=== PATIENT | female | born 1965 | race Caucasian/White ===

== ENCOUNTER 2018-05-18 21:31 | Inpatient (IN) | payer MEDICARE, MEDICAID ==
--- NOTE | 2018-05-18 22:31 | ED Physician Chart ---
ED Chief Complaint/HPI - Patient Information Date Seen:: 05/18/18 Time Seen:: 22:28 Chief Complaint:: AGITATION History of Present Illness:: 52 YR OLD FEMALE FOR INCREASED AGITATION PT HERE SCREAMING NOT ABLE TO FOLLOW COMMANDS Allergies:: Allergies Allergy/AdvReac Type Severity Reaction Status Date / Time No Known Allergies Allergy Verified 05/18/18 22:09 Vitals:: Vital Signs - 8 hr 05/18/18 21:35 Temp 98.0 F HR 80 RR 18 BP 145/79 O2 Sat % 96 ED Review of Systems - Review of Systems General/Constitutional: No fever Skin: Rash Eyes: No loss of vision Neck: No neck pain Cardio Vascular: No chest pain Pulmonary: No SOB GI: No vomiting Psychiatric: Prior psych history Hematopoietic: Bruising Neurological: No syncope ED Past Medical History - Past Medical History Past Medical History: DM, Asthma/COPD, Dementia, Other (ANEMIA PSYCHOSIS) Family Medical History - Family Member Mother History Unknown: Yes ED Physical Exam - Physical Examination General/Constitutional: Awake Other Gen/Cons comments:: VERY AGITATION ALWAYS YELLING SCREAMING TAKING OFF HER SHEETS STRIPPING DOWN Neck: Nontender Respiratory: Nl effort/Exclusion Cardio Vascular: No murmur, gallop, rubs GI: No organomegaly Extremities: No tenderness or effusion (HAS REDDNESS AREA LEGS) ED Assessment - Assessment General Assessment: PSYCHOSIS ED Septic Shock - . Is Septic Shock (SBP<90, OR Lactate>4 mmol\L) present?: No - <6hrs of presentation: Vital Signs: Vital Signs - 8 hr 05/18/18 21:35 Temp 98.0 F HR 80 RR 18 BP 145/79 O2 Sat % 96 ED Reassessment (Disposition) - Reassessment Reassessment Condition:: Improved - Diagnosis Diagnosis:: PSYCHOSIS AGITATION - Patient Disposition Discharge/Transfer:: Acute Care w/in this hosp
[2018-05-18] MEDS ORDERED: Haloperidol Lactate 5 mg/mL 1mL Vial IM STA (22:59)
[2018-05-18] MEDS ORDERED: Haloperidol Lactate 5 mg/mL 1mL Vial ONE (23:00)
[2018-05-18 23:28] LABS: % EOSINOPHILS 0.3 % (0.0-5.0); % LYMPHOCYTES 23.1 % (20.0-50.0); % MONOCYTES 8.2 % (2.0-10.0); % NEUTROPHILS 67.4 % (40.0-80.0); BASOPHILE ABSOLUTE 0.1 Th/cumm (0-0.2); HEMATOCRIT 36.8 % (41.0-60); HEMOGLOBIN 12.3 gm/dL (12-16); LYMPHOCYTE ABSOLUTE 2.3 Th/cmm (1.5-3.0); MEAN CELL VOLUME 94.9 fl (81-100); MEAN CORPUSCULAR HEMOGLOBIN 31.7 pg (27.0-31.0); MEAN CORPUSCULAR HGB CONC 33.4 pg (28.0-36.0); MEAN PLATELET VOLUME 8.3 fl; MONOCYTE ABSOLUTE 0.8 Th/cmm (0.3-1.0); NEUTROPHILE ABSOLUTE 6.7 Th/cmm (1.8-8.0); PLATELET COUNT 302 Th/cmm (150-400); RED BLOOD COUNT 3.88 Mil/cmm (3.80-5.10); RED CELL DISTRIBUTION WIDTH 13.4 % (11.5-20.0); WHITE BLOOD COUNT 9.9 Th/cmm (4.8-10.8)
[2018-05-18 23:44] LABS: ANION GAP 11.7 (7.0-16.0); BUN - UREA NITROGEN 13 mg/dL (7-25); CALCIUM SERUM 8.9 mg/dL (8.6-10.3); CHLORIDE 107 mEq/L (98-107); CREATININE - SERUM 0.7 mg/dL (0.6-1.2); GFR AFRICAN-AMERICAN > 60.0 ml/min (>90); GFR NON AFRICAN-AMERICAN > 60.0 ml/min; GLUCOSE 97 mg/dL (70-105); POTASSIUM SERUM 3.7 mEq/L (3.5-5.1); SODIUM SERUM 140 mEq/L (136-145); VALPROIC ACID 40.2 ug/mL (50.0-100.0)
[2018-05-19 01:01] VITALS: BP 137/65
[2018-05-19] MEDS ORDERED: Albuterol Nebulizer 2.5mg/3mL HHN PRN (01:10)
[2018-05-19] MEDS: INSULIN ASPART SLIDING SCALE 100 UNITS/ML UNIT SUBQ SCH ×4 (06:45→22:18)
[2018-05-19] MEDS ORDERED: Haloperidol Lactate 5 mg/mL 1mL Vial ONE (07:18)
[2018-05-19] MEDS ORDERED: Haloperidol Lactate 5 mg/mL 1mL Vial IM ONE ×2 (07:18→07:21)
[2018-05-19] MEDS: Ferrous Sulfate 325 MG TAB PO SCH ×3 (08:05→22:18)
[2018-05-19] MEDS: Benztropine 1 MG TAB PO SCH ×2 (08:05→18:00)
[2018-05-19] MEDS: Multivitamin Tab PO SCH (08:06)
[2018-05-19] MEDS ORDERED: chlorproMAZINE 25 mg/mL 2mL Amp ONE (10:16)
[2018-05-19] MEDS ORDERED: chlorproMAZINE 25 mg/mL 2mL Amp IM ONE (10:17)
--- NOTE | 2018-05-19 11:18 | History & Physical ---
ADMIT DATE: 05/19/2018 CHIEF COMPLAINT: Increasing agitation. HISTORY OF PRESENT ILLNESS: A 52-year-old developmentally delayed female with history of: 1. Psychotic disorder. 2. Diabetes mellitus. 3. Questionable dementia. 4. Developmental delay. 5. Asthma; resides at [facility], sent to [facility] Emergency Room after the patient was noted to have increasing agitation and aggressive behavior. The patient was noted to have multiple abrasions on her upper and lower extremity. The patient was now being admitted at this time to psych facility for further treatment. Unable to get meaningful history from the patient due to extreme agitation at this time. History is limited after reviewing the chart, talking to the staff, as well as brief exam. PAST MEDICAL HISTORY: Remarkable for: 1. Diabetes. 2. Developmental delay. 3. Psychotic disorder. 4. Asthma. 5. DJD. MEDICATIONS: Reported Tylenol, vitamin C, Cogentin, Depakote, albuterol inhalation therapy, ferrous sulfate, Invega, Lantus, multivitamin, sliding scale insulin, clonazepam, Zyprexa, trazodone. ALLERGIES: The patient is allergic to medications. SOCIAL HISTORY: She is a resident of skilled nursing. No smoking or alcohol use. FAMILY MEDICAL HISTORY: Unavailable. REVIEW OF SYSTEMS: Unable to get meaningful history from the patient. PHYSICAL EXAMINATION: GENERAL: A 52-year-old female, extremely agitated. VITAL SIGNS: Temperature 98, pulse is 100, respiratory rate is 20, blood pressure 128/68. HEENT: Normocephalic, atraumatic. Tongue was pink and coated. Poor dentition noted. No facial asymmetry. NECK: Supple, no JVD, no bruit, no thyromegaly. HEART: Both heart sounds are regular. No murmur. CHEST AND LUNGS: Equal in expansion with no expiratory wheezing. ABDOMEN: Soft. No guarding, no rigidity. Bowel sounds present. No palpable mass. EXTREMITIES: No edema. Peripheral pulses are +2. No calf tenderness. NEUROLOGIC: Extremely agitated, moving upper and lower extremities. SKIN: Unremarkable. Multiple areas of abrasions as well as scratch ivon and ecchymosis also noted on extremities. AVAILABLE DIAGNOSTIC DATA: Performed in the Emergency Room, which revealed white count of 9, hemoglobin 12.3, platelet count of 302. Electrolytes are within normal limit, glucose of 121. Depakote level of 40.2. TSH of 1.56. CLINICAL IMPRESSIONS: 1. Acute exacerbation of psychotic disorder. 2. Developmental delay. 3. Diabetes mellitus. 4. Asthma. 5. High risk for fall. 6. High risk for dehydration. 7. Multiple areas of skin abrasions. PLAN: 1. Psychotic evaluation and management deferred to psychiatrist. 2. The patient will be resumed on her home medication as patient is receiving. Inhalation therapy will be provided. sliding scale insulin will be given. Fall precaution will be provided. Nutritional support will be given. General nursing care will be provided. We will reevaluate this patient further once the patient is more cooperative and provided more history. I sincerely thank you, Dr. Calderon for giving me the opportunity to participate in patient of yours. JOB# [id number]
--- NOTE | 2018-05-19 15:05 | Psychiatric Evaluation ---
DATE OF SERVICE: 05/19/2018 PSYCHIATRIC INITIAL EVALUATION AND MENTAL STATUS EXAM PATIENT'S AGE: 52-year-old. SEX: Female. PHYSICIAN: Martin Calderon MD, MPH CHIEF COMPLAINT: Agitation and aggressive behavior. HISTORY OF PRESENT ILLNESS: The patient is a 52-year-old female who was transferred from [facility] because of increased agitation and because of yelling and screaming constantly. The patient has been yelling and screaming constantly and has not been able to follow any directions. She also has been rambling and has been paranoid. She also has not been able to answer any of the questions because of constant yelling and screaming. The patient has been also taking medications, include Depakote and olanzapine and Zoloft with no help for controlling her temper and her agitation. PAST PSYCHIATRIC HISTORY: The patient has history of developmental delay. PAST MEDICAL HISTORY: The patient has a history of diabetes mellitus. SOCIAL HISTORY: The patient lives in [facility]. No known alcohol or drug use. ALLERGIES: No known allergies. MENTAL STATUS EXAMINATION: The patient appears older than her stated age. Yelling and screaming constantly. Irritable mood. Flat affect. Agitated and unable to answer any of my questions because of yelling and screaming. The patient is alert, but seems to be disoriented to time, place, person, and situation. Unable to assess her memory because of her constant agitation and irritability. ASSESSMENT: PRIMARY DIAGNOSIS: Unspecified psychosis. SECONDARY DIAGNOSIS: Developmental delay. MEDICAL DIAGNOSES: Diabetes mellitus. Bronchial asthma. Degenerative joint disease. TREATMENT PLAN AND RECOMMENDATIONS: We will monitor the patient's behavior closely. We will increase Zyprexa to 10 mg twice a day. We will follow up. ESTIMATED LENGTH OF STAY: 5-7 days. THE PATIENT'S STRENGTHS AND WEAKNESSES: The patient's strength is not clear at this time. Weaknesses is ineffective coping and her poor judgment. AFTER DISCHARGE PLAN: Outpatient treatment and followup. CRITERIA FOR DISCHARGE: The patient will not get agitated and will stabilize psychotropic medications and will establish outpatient treatment plans. JOB# [id number]
[2018-05-20] MEDS: INSULIN ASPART SLIDING SCALE 100 UNITS/ML UNIT SUBQ SCH ×4 (06:57→21:04)
[2018-05-20] MEDS: Benztropine 1 MG TAB PO SCH ×2 (10:00→18:00)
[2018-05-20] MEDS: Ferrous Sulfate 325 MG TAB PO SCH ×3 (10:00→21:06)
[2018-05-20] MEDS: Multivitamin Tab PO SCH (10:00)
[2018-05-20] MEDS ORDERED: chlorproMAZINE 25 mg/mL 2mL Amp ONE (11:10)
[2018-05-20] MEDS ORDERED: chlorproMAZINE 25 mg/mL 2mL Amp IM STA (11:15)
[2018-05-21] MEDS: INSULIN ASPART SLIDING SCALE 100 UNITS/ML UNIT SUBQ SCH ×4 (06:42→21:10)
--- NOTE | 2018-05-21 07:39 | Progress Notes ---
DATE: 05/21/2018 A 52-year-old female transferred from [facility] because of agitation, yelling, screaming constantly and constant redirection, not really answering to my questions, history of developmental disability, diabetes. Staff noting she remains symptomatic, ongoing yelling episodes, sometimes agitated, confused, rambling, eating with some prompting. ASSESSMENT: The patient remains symptomatic, impulsive, poor sleep at times, aggressive, still confused. The patient at times putting her finger into her nostril for unclear reasons, becomes angry with the nurse when they tell her to stop. We will continue to monitor her ongoing symptoms indicative that she is not safe for a lower level of care. Currently, she is in a Ramonita chair, calm, quiet. Staff noting trazodone did ____ help her sleep. JOB# [id number]
[2018-05-21] MEDS: Multivitamin Tab PO SCH (08:56)
[2018-05-21] MEDS: Ferrous Sulfate 325 MG TAB PO SCH ×3 (08:57→21:09)
[2018-05-21] MEDS: Benztropine 1 MG TAB PO SCH ×2 (08:57→16:58)
[2018-05-21] MEDS ORDERED: Haloperidol Lactate 5 mg/mL 1mL Vial IM ONE (11:55)
[2018-05-21] MEDS ORDERED: Haloperidol Lactate 5 mg/mL 1mL Vial ONE (12:01)
--- NOTE | 2018-05-21 22:20 | Progress Notes ---
DATE: 05/21/2018 SUBJECTIVE: The patient was seen and examined. The patient is developmentally delayed with a limited history. She is admitted at psych facility for psychiatric care. PHYSICAL EXAMINATION: VITAL SIGNS: See nurse's note. HEENT: Poor dentition. NECK: Supple. HEART: Regular. LUNGS: Clear. ABDOMEN: Soft. EXTREMITIES: No edema. NEUROLOGIC: Not following any commands. CLINICAL IMPRESSION: 1. Diabetes. 2. Developmental delay. 3. Psychotic disorder. 4. Asthma. 5. High risk for fall. PLAN: 1. Psychiatric evaluation and management, deferred to psychiatrist. 2. Diabetes management. 3. Nutritional support. 4. Fall precaution. 5. Watch for asthma exacerbation. 6. Care plan reviewed and discussed with staff. JOB# [id number]
--- NOTE | 2018-05-22 02:06 | Progress Notes ---
DATE: 05/20/2018 SUBJECTIVE: Chart reviewed and the patient interviewed. Also discussed the patient's condition with the staff and reviewed records and labs. The patient is still restless and she is still yelling and screaming. The patient also is still unable to follow any directions. The patient also is still having severe mood swings and she is still yelling and screaming regardless of situation and for no reason. Also, the patient is disheveled and she is still having severe mood swings. ASSESSMENT: The patient is still agitated and in irritable mood. TREATMENT PLAN: We will continue to monitor her behavior and her condition closely. Also, we will add Klonopin in a dose of 0.25 mg twice a day and will continue to follow up. JOB# [id number]
[2018-05-22] MEDS: INSULIN ASPART SLIDING SCALE 100 UNITS/ML UNIT SUBQ SCH ×4 (06:57→20:34)
--- NOTE | 2018-05-22 06:58 | Progress Notes ---
DATE: 05/22/2018 SUBJECTIVE: A 52-year-old female transferred from [facility] the patient was yelling, still yelling at this time, moaning, difficult to redirect, resistive to care, history of developmental disability. 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 ASSESSMENT: The patient remains aggressive, required emergency medications, Haldol, cocktail was administered last night. Given her ongoing symptoms, she is not safe for discharge. The patient is still agitated. JOB# [id number]
[2018-05-22] MEDS: Benztropine 1 MG TAB PO SCH ×2 (08:59→16:20)
[2018-05-22] MEDS: Multivitamin Tab PO SCH (08:59)
[2018-05-22] MEDS: Ferrous Sulfate 325 MG TAB PO SCH ×3 (09:00→21:15)
[2018-05-23] MEDS: INSULIN ASPART SLIDING SCALE 100 UNITS/ML UNIT SUBQ SCH ×4 (06:32→21:00)
[2018-05-23] MEDS: Ferrous Sulfate 325 MG TAB PO SCH ×4 (08:53→20:44)
[2018-05-23] MEDS: Multivitamin Tab PO SCH (08:53)
[2018-05-23] MEDS: Benztropine 1 MG TAB PO SCH ×2 (08:53→17:31)
[2018-05-23] MEDS ORDERED: chlorproMAZINE 25 mg/mL 2mL Amp ONE (10:55)
[2018-05-23] MEDS ORDERED: chlorproMAZINE 25 mg/mL 2mL Amp IM STA (11:02)
--- NOTE | 2018-05-23 11:17 | Progress Notes ---
DATE: 05/23/2018 SUBJECTIVE: The patient seen and examined. The patient has a constant period of agitation and aggressive behavior. The patient does not provide a meaningful history. PHYSICAL EXAMINATION: VITAL SIGNS: Temperature 96.9, pulse is 100, respiratory rate 16, blood pressure 107/65. HEENT: Poor dentition. NECK: Supple, no JVD. HEART: Regular. CHEST AND LUNGS: Equal in expansion, no expiratory wheezing. ABDOMEN: Soft, no guarding or rigidity. Bowel sounds are present. No palpable mass. EXTREMITIES: No edema. CLINICAL IMPRESSION: 1. Psychotic disorder exacerbation. 2. Developmental disability. 3. Diabetes mellitus. 4. Asthma. 5. Ruled out aspiration. PLAN: 1. Psychotic evaluation and management deferred to psychiatrist. 2. Fall precautions. 3. Nutritional support. 4. General nursing care. 5. Diabetes management. 6. P.r.n. inhalation therapy. 7. We will continue to follow this patient during the stay in the hospital. 8. Once the patient is stable, we will consider aspiration, dysphagia evaluation. JOB# [id number]
[2018-05-23] MEDS ORDERED: Haloperidol Lactate 5 mg/mL 1mL Vial IM ONE (15:06)
[2018-05-24] MEDS: INSULIN ASPART SLIDING SCALE 100 UNITS/ML UNIT SUBQ SCH ×4 (06:33→21:45)
[2018-05-24] MEDS: Multivitamin Tab PO SCH (08:42)
[2018-05-24] MEDS: Ferrous Sulfate 325 MG TAB PO SCH ×3 (08:42→22:00)
[2018-05-24] MEDS: Benztropine 1 MG TAB PO SCH ×2 (08:43→18:01)
--- NOTE | 2018-05-24 09:42 | Progress Notes ---
DATE: 05/24/2018 SUBJECTIVE: The patient seen and examined. The patient is sitting in the chair. The patient is a little bit more cooperative than last few days. The patient remained hemodynamically stable. OBJECTIVE: VITAL SIGNS: Unable to see the vital signs since it was not done today. HEENT: Poor dentition. NECK: Supple, no JVD. HEART: Regular. CHEST AND LUNGS: Equal in expansion, no expiratory wheezing. ABDOMEN: Soft. EXTREMITIES: No edema. CLINICAL IMPRESSION: 1. Diabetes mellitus. 2. Developmental delay. 3. Psychotic disorder exacerbation. 4. High risk for fall. 5. Asthma. 6. Dysphagia. PLAN: 1. Psychotic evaluation and management deferred to psychiatrist. 2. Monitor blood sugar and use sliding scale insulin. 3. Continue to watch for aspiration. 4. Dysphagia therapy. 5. General nursing care. 6. The patient will be followed by us during the stay in the hospital. JOB# [id number]
--- NOTE | 2018-05-24 23:57 | Progress Notes ---
DATE: 05/23/2018 Chart reviewed and the patient interviewed. Also discussed the patient's condition with the staff and reviewed records and labs. The patient continued to be constantly yelling and screaming nonstop. The patient also is still agitated and she is still unable to follow any directions. The patient also is still in irritable and angry mood. Also, she still has disorganized thoughts. Also, personal hygiene is still poor. ASSESSMENT: The patient is still agitated and psychotic. TREATMENT PLAN: Although the patient is taking Zyprexa, it is not helping much. We will decrease Zyprexa to 5 mg twice a day and we will start Seroquel in a dose of 25 mg twice a day and 50 mg at bedtime. Also, continue to work on her behavior modification and her irritability and we will continue to follow up closely. JOB# [id number]
--- NOTE | 2018-05-25 00:26 | Progress Notes ---
DATE: 05/24/2018 SUBJECTIVE: Chart reviewed and the patient interviewed. Also discussed the patient's condition with the staff and reviewed records and labs. The patient continued to be extremely irritable and extremely agitated with yelling and screaming episodes. She also still has been taking p.r.n. medications including Thorazine and Haldol, but is not helping enough. She also has been guarded and withdrawn. She also has been unable to follow any of the staff directions because of ____ agitation and irritability. ASSESSMENT: The patient is still agitated and psychotic and actively responding. TREATMENT PLAN: I started the patient on Seroquel yesterday. We will add Klonopin in a dose of 1 mg 3 times a day and we will continue to work on behavioral modification and her irritability. JOB# [id number]
[2018-05-25] MEDS: INSULIN ASPART SLIDING SCALE 100 UNITS/ML UNIT SUBQ SCH ×4 (06:46→21:26)
[2018-05-25] MEDS: Ferrous Sulfate 325 MG TAB PO SCH ×3 (08:09→20:48)
[2018-05-25] MEDS: Benztropine 1 MG TAB PO SCH ×2 (08:09→17:07)
[2018-05-25] MEDS: Multivitamin Tab PO SCH (08:10)
--- NOTE | 2018-05-25 13:01 | Progress Notes ---
DATE: 05/25/2018 Case was discussed with staff of the patient, reviewed records. Covering for Dr. Calderon. This is a 52-year-old female who was transferred from [facility] because of increasing agitation, yelling and screaming constantly. The patient is developmentally disorder, has been paranoid, unable to answer questions. The patient also is diabetic. The patient continues to be yelling and screaming. Continues to have poor insight. Continues to be unable to carry on a conversation or make safe plan for self-care. The staff report that they gave her all kind of medication to help stop her screaming and did not work. She is on Klonopin 1 mg 3 times a day and olanzapine 5 mg twice a day and Seroquel 50 mg 3 times a day and Zoloft 100 mg daily, trazodone 150 mg at bedtime with no side effects, no sedation, no nausea, no extrapyramidal symptoms. Her Depakote level is 40.2, which is below expected range or below therapeutic range. However, her dose was increased 2 days ago to 500 mg twice a day. So, I will be rechecking the level. We will continue the patient in group therapy, milieu therapy, adjust medication as needed. [facility]# [id number]
[2018-05-26] MEDS: INSULIN ASPART SLIDING SCALE 100 UNITS/ML UNIT SUBQ SCH ×4 (06:37→21:26)
[2018-05-26] MEDS ORDERED: chlorproMAZINE 25 mg/mL 2mL Amp ONE (07:09)
[2018-05-26] MEDS ORDERED: chlorproMAZINE 25 mg/mL 2mL Amp IM STA (07:34)
[2018-05-26] MEDS: Ferrous Sulfate 325 MG TAB PO SCH ×3 (08:06→21:19)
[2018-05-26] MEDS: Multivitamin Tab PO SCH (08:06)
[2018-05-26] MEDS: Benztropine 1 MG TAB PO SCH ×2 (08:06→17:15)
--- NOTE | 2018-05-26 15:19 | Progress Notes ---
DATE: 05/26/2018 SUBJECTIVE: Case was discussed with staff of the patient, reviewed records. The patient continues to have episodes of irritability, agitation, continues to be on as needed medications because of extreme agitation, acting out behavior. The patient continues to be psychotic, also she is developmentally disabled and so far no side effects with the medication, no sedation, no nausea and no extrapyramidal symptoms and noted to have the patient in group therapy, milieu therapy, adjust the medication as needed. JOB# [id number]
--- NOTE | 2018-05-26 16:45 | Progress Notes ---
DATE: 05/26/2018 SUBJECTIVE: The patient seen and examined. The patient sitting in a Ramonita chair. The patient is alert, but not oriented. The patient is restless and anxious. Discussed with staff about the treatment plan. PHYSICAL EXAMINATION: VITAL SIGNS: Temperature 97.9, pulse 84, respiratory rate 18, and blood pressure 131/68. HEENT: Poor dentition. NECK: Supple, no JVD. HEART: Regular. CHEST AND LUNGS: Equal in expansion, no expiratory wheezing. ABDOMEN: Soft. EXTREMITIES: No edema. Glucoscan is reviewed. CLINICAL IMPRESSION: 1. Diabetes mellitus. 2. Developmental delay. 3. Dysphagia. 4. Asthma by history. 5. Psychotic disorder. 6. High risk for fall. PLAN: 1. Sliding scale insulin and monitor the blood sugar. 2. P.r.n. inhalation therapy. 3. Psych medication and psych followup. 4. Fall precautions. 5. Dysphagia diet. 6. General nursing care. 7. We will continue to follow this patient during the stay in the hospital. 8. We will add low dose metformin therapy as well if blood sugars are elevated for next 24 hours. JOB# [id number]
[2018-05-27] MEDS: INSULIN ASPART SLIDING SCALE 100 UNITS/ML UNIT SUBQ SCH ×3 (06:31→17:36)
[2018-05-27] MEDS: Multivitamin Tab PO SCH (08:26)
[2018-05-27] MEDS: Benztropine 1 MG TAB PO SCH ×2 (08:26→16:56)
[2018-05-27] MEDS: Ferrous Sulfate 325 MG TAB PO SCH ×2 (08:27→14:37)
--- NOTE | 2018-05-27 23:49 | Progress Notes ---
DATE: 05/27/[address] Calderon. Case was discussed with staff of the patient, reviewed records. The patient continues to be agitated, irritable, continues to be yelling and screaming. Continues to have poor insight. Unable to make safe plan for self-care, unpredictable, impulsive, needing right direction. She is also developmentally disabled. Apparently yesterday, they gave her Thorazine, it seemed she had a wonderful response to it. Apparently, she was able to sleep yesterday, so I will be adding Thorazine to her medication 50 mg daily and increase the dose as instructed, but meanwhile I will be taking her off the Zyprexa and Seroquel. Apparently, that has not been working for her and will continue outpatient group therapy, milieu therapy, and adjust medication as needed. JOB# [id number]
[2018-05-28] MEDS: Ferrous Sulfate 325 MG TAB PO SCH ×4 (01:52→20:10)
[2018-05-28] MEDS: INSULIN ASPART SLIDING SCALE 100 UNITS/ML UNIT SUBQ SCH ×5 (02:04→22:54)
--- NOTE | 2018-05-28 08:44 | Progress Notes ---
DATE: 05/28/2018 DATE OF SERVICE: 05/28/2018 SUBJECTIVE: A 52-year-old female who is transferred from because of increased agitation, yelling, screaming constantly, not following directions, rambling, paranoid, not really answering any questions. The patient on medley of medications. The patient required emergency medications over the past 24 hours, yelling, screaming. On [id number], the patient is sleeping, but arousable, not wanting to engage during interview. Generally appearing quite confused. Dr. Flynn has seen the patient yesterday noting history of developmental disability, yelling, screaming, taking Thorazine at times, poor insight. ASSESSMENT: The patient is unruly, still agitated. PLAN: Continue to monitor. The patient will likely need dose escalations of medications. We will continue Thorazine, likely titrate the dose. JOB# [id number]
[2018-05-28] MEDS: Benztropine 1 MG TAB PO SCH ×2 (08:50→16:56)
[2018-05-28] MEDS: Multivitamin Tab PO SCH (08:52)
--- NOTE | 2018-05-28 23:52 | Progress Notes ---
DATE: 05/28/2018 SUBJECTIVE: The patient was seen and examined. Glucoscan reviewed. Blood sugar is around 200+. The patient is currently on sliding scale insulin. Unable to get meaningful history. The patient is restless at time. PHYSICAL EXAMINATION: VITAL SIGNS: Temperature 98, pulse 64, respiratory rate 18, blood pressure 140/70. HEENT: No facial asymmetry. Poor dentition noted. NECK: Supple, no JVD. HEART: Regular, no murmur. CHEST: Lung equal in expansion, no expiratory wheezing. ABDOMEN: Soft. No guarding, no rigidity. Bowel sounds are present. EXTREMITIES: No edema. CLINICAL IMPRESSION: 1. Diabetes mellitus with elevated blood sugar. 2. Asthma. 3. Developmental delay. 4. Psychotic disorder. 5. High risk for fall. PLAN: 1. Start the patient on p.o. metformin for now in the view of elevated blood sugar. 2. Continue to provide sliding scale insulin and nutritional support. 3. Psych medication and psych followup. 4. Continue to provide general nursing care as well as dysphagia diet. 5. We will continue to follow this patient during the stay in the hospital. JOB# [id number]
[2018-05-29] MEDS ORDERED: chlorproMAZINE 25 mg/mL 2mL Amp IM ONE (06:48)
[2018-05-29] MEDS: INSULIN ASPART SLIDING SCALE 100 UNITS/ML UNIT SUBQ SCH ×4 (07:11→20:40)
[2018-05-29] MEDS ORDERED: chlorproMAZINE 25 mg/mL 2mL Amp ONE (07:16)
[2018-05-29] MEDS: Multivitamin Tab PO SCH (09:11)
[2018-05-29] MEDS: Benztropine 1 MG TAB PO SCH ×2 (09:11→17:28)
[2018-05-29] MEDS: Ferrous Sulfate 325 MG TAB PO SCH ×3 (09:13→20:30)
--- NOTE | 2018-05-29 10:47 | Progress Notes ---
DATE: 05/29/2018 SUBJECTIVE: The patient with agitation, yelling, screaming, constantly in the Ramonita chair, shrill voice, unable to be really engaged during interview just yelling, screaming. The patient requiring emergency orders of Thorazine this morning due to agitation. ASSESSMENT: The patient difficult to interview, yelling, screaming, currently on Thorazine 50 daily. We will add an increase of dosage given her ongoing symptoms, she remains quite symptomatic, requiring escalating doses of medications. [facility]# [id number]
[2018-05-30] MEDS: INSULIN ASPART SLIDING SCALE 100 UNITS/ML UNIT SUBQ SCH ×4 (07:02→20:31)
[2018-05-30] MEDS: Benztropine 1 MG TAB PO SCH ×2 (09:43→17:53)
[2018-05-30] MEDS: Multivitamin Tab PO SCH (09:43)
[2018-05-30] MEDS: Ferrous Sulfate 325 MG TAB PO SCH ×3 (09:43→20:30)
--- NOTE | 2018-05-30 16:28 | Progress Notes ---
DATE: 05/30/2018 The patient is currently in the hospital, remains agitated, yelling, screaming, banging, constant screaming, requiring emergency medications over the past 24 hours, Thorazine. The patient is a poor historian, not making any sense, simply screaming and yelling. ASSESSMENT AND PLAN: The patient remains combative, yelling episodes, screaming episodes, currently on Klonopin, also on Thorazine at night time. Given her ongoing symptoms, she is not currently safe for discharge. We will be increasing Thorazine dosing today. JOB# [id number]
--- NOTE | 2018-05-30 22:04 | Progress Notes ---
DATE: SUBJECTIVE: The patient seen and examined. The patient does not provide any meaningful history. The patient remained agitated, yelling, and screaming. The patient needs a Psychiatry care at this time for her stabilization of her mood. OBJECTIVE: VITAL SIGNS: Temperature not available, pulse is 120, respiratory rate 18, blood pressure is also not available. Glucoscan has been reviewed. HEENT: Poor dentition. NECK: Supple, no JVD. HEART: Regular. CHEST AND LUNG: Equal in expansion, no expiratory wheezing. ABDOMEN: Soft. EXTREMITIES: No edema. CLINICAL IMPRESSION: 1. Diabetes mellitus. 2. Psychotic disorder exacerbation. 3. Developmental delay. 4. Asthma with possible aspiration. 5. Psychotic disorder. 6. Decline in self-care. PLAN: 1. Continue to provide metformin along with the sliding scale insulin and monitor blood sugar, p.r.n. inhalation therapy. 2. Psychiatric evaluation and management deferred to psychiatrist. 3. Fall precaution and general nursing care. 4. Care plan reviewed and discussed. JOB# [id number]
[2018-05-31] MEDS: INSULIN ASPART SLIDING SCALE 100 UNITS/ML UNIT SUBQ SCH ×4 (06:40→20:44)
[2018-05-31] MEDS: Multivitamin Tab PO SCH (10:33)
[2018-05-31] MEDS: Benztropine 1 MG TAB PO SCH ×2 (10:33→17:47)
[2018-05-31] MEDS: Ferrous Sulfate 325 MG TAB PO SCH ×3 (10:34→20:43)
--- NOTE | 2018-05-31 18:03 | Progress Notes ---
DATE: 05/31/2018 Case was discussed with staff of the patient, reviewed records. The patient continues to have thoughts of yelling and screaming, and banging. Continues to be easily agitated, continues to require emergency medications. She is not settling down. She continues to be combative, unpredictable and impulsive. She is also developmentally disabled. No side effects with the medications, no sedation, no nausea and no extrapyramidal symptoms and her chlorpromazine was increased yesterday to 50 mg twice a day with no side effects and we will continue the patient in group therapy, milieu therapy, adjust medication as needed. JOB# [id number]
[2018-06-01] MEDS: INSULIN ASPART SLIDING SCALE 100 UNITS/ML UNIT SUBQ SCH ×4 (06:34→20:26)
[2018-06-01] MEDS: Benztropine 1 MG TAB PO SCH ×2 (09:51→17:29)
[2018-06-01] MEDS: Ferrous Sulfate 325 MG TAB PO SCH ×3 (09:51→21:34)
[2018-06-01] MEDS: Multivitamin Tab PO SCH (09:51)
--- NOTE | 2018-06-01 12:46 | Progress Notes ---
DATE: IDENTIFICATION: A 52-year-old female. SUBJECTIVE: The patient is seen and examined. The patient continues to remain yelling, screaming, very anxious. The patient does not provide any meaningful history. PHYSICAL EXAMINATION: VITAL SIGNS: Temperature 97.4, pulse is 100, respiratory rate is 18, blood pressure 138/80. HEENT: Poor dentition. NECK: Supple, no JVD. HEART: Regular. CHEST AND LUNGS: Equal in expansion, no expiratory wheezing. ABDOMEN: Soft. EXTREMITIES: No edema. Glucoscan is reviewed. CLINICAL IMPRESSION: 1. Diabetes mellitus. 2. Developmental delay. 3. Psychotic disorder. 4. Asthma. 5. Dysphagia. 6. High risk for fall. PLAN: 1. Increase metformin to 500 mg 3 times a day. 2. Continue to provide p.r.n. inhalation therapy. 3. Dysphagia with diet. 4. Psych medication. 5. Psych follow up 6. General nursing care. 7. Fall precaution. 8. Care plan reviewed and discussed. JOB# [id number]
--- NOTE | 2018-06-01 18:21 | Progress Notes ---
DATE: 06/01/2018 PROGRESS ON THE UNIT: Case was discussed with staff of the patient, reviewed records. The patient continues to have episodes of yelling and screaming. She continues to be unpredictable, impulsive, needing redirection. She continues to have poor insight. Chlorpromazine was increased to 50 mg twice a day with no side effects, no sedation, no nausea. I will be increasing the dose at bedtime to 75 mg to help with her extreme agitation, as other medications failed to help her. PLAN: We will continue to work with the patient in group therapy and milieu therapy, adjust the medications as needed. JOB# [id number]
[2018-06-01] MEDS ORDERED: CHLORPROMAZINE PO SCH (21:00)
[2018-06-02] MEDS: INSULIN ASPART SLIDING SCALE 100 UNITS/ML UNIT SUBQ SCH ×3 (06:57→21:03)
[2018-06-02] MEDS: Benztropine 1 MG TAB PO SCH (09:35)
[2018-06-02] MEDS: Multivitamin Tab PO SCH (14:39)
[2018-06-02] MEDS: Ferrous Sulfate 325 MG TAB PO SCH ×2 (14:39→21:06)
--- NOTE | 2018-06-02 14:39 | Progress Notes ---
DATE: 06/02/2018 IDENTIFICATION: A 52-year-old female. SUBJECTIVE: The patient seen and examined. The patient sitting in a Ramonita chair, trying to socialize with the staff. The patient is alert and awake. The patient does not provide a meaningful history. PHYSICAL EXAMINATION: VITAL SIGNS: Temperature 97.6, pulse is 110, respiratory rate 18, blood pressure is 118/75. HEENT: No facial asymmetry. NECK: Supple, no JVD. HEART: Regular. CHEST AND LUNGS: Equal in expansion, no expiratory wheezing. ABDOMEN: Soft, no guarding, no rigidity. Bowel sounds present. No palpable mass. EXTREMITIES: No edema. Available Glucoscan has been reviewed. CLINICAL IMPRESSION: 1. Diabetes mellitus, currently on metformin, dose has been increased yesterday. 2. Psychotic disorder. 3. Developmental delay. 4. History of asthma. 5. High risk for fall. PLAN: Continue to provide metformin along with sliding scale insulin and provide p.r.n. inhalation therapy. Psychiatric evaluation and management deferred to psychiatrist. Nutritional support and General nursing care. JOB# [id number]
--- NOTE | 2018-06-02 16:27 | Progress Notes ---
DATE: 06/02/2018 FOLLOW-UP PROGRESS NOTE PROGRESS ON THE UNIT: Case was discussed with staff of the patient, reviewed records. The patient continues to have poor insight. She continues to be unpredictable, impulsive, needing redirection. The patient continues to have episodes of yelling and screaming. She tolerated the chlorpromazine. The staff believes that this is working well for her, so I increased it to 50 mg twice a day ____ 75 mg at bedtime and hopefully that will calm her down. PLAN: We will continue to work with the patient in group therapy and milieu therapy, adjust the medications as needed. JOB# [id number]
[2018-06-03] MEDS: INSULIN ASPART SLIDING SCALE 100 UNITS/ML UNIT SUBQ SCH ×4 (07:36→21:27)
[2018-06-03] MEDS: Ferrous Sulfate 325 MG TAB PO SCH ×3 (08:27→21:28)
[2018-06-03] MEDS: Multivitamin Tab PO SCH (08:28)
[2018-06-03] MEDS: Benztropine 1 MG TAB PO SCH ×2 (08:30→16:31)
--- NOTE | 2018-06-03 16:38 | Progress Notes ---
DATE: 06/03/2018 Case was discussed with staff of the patient, reviewed records. The patient is reported by the staff to be calmer; however, she is still having episodes of agitation and irritability, continues to have poor insight. Continues to be unable to make safe plan for self-care, unpredictable, impulsive, not sure if this is her basic level of functioning that I will be trying to make further adjustments to her medications. The patient is developmentally delayed. I will be further increasing her chlorpromazine slightly to make sure she is calmer, to give her 100 mg at bedtime. We will continue the patient in group therapy, milieu therapy, adjust medication as needed. JOB# [id number]
[2018-06-04] MEDS: INSULIN ASPART SLIDING SCALE 100 UNITS/ML UNIT SUBQ SCH ×4 (06:50→21:05)
[2018-06-04] MEDS: Ferrous Sulfate 325 MG TAB PO SCH ×3 (08:50→21:04)
[2018-06-04] MEDS: Multivitamin Tab PO SCH (08:51)
[2018-06-04] MEDS: Benztropine 1 MG TAB PO SCH ×2 (08:51→16:30)
--- NOTE | 2018-06-04 21:53 | Progress Notes ---
DATE: 06/04/2018 The patient was seen and evaluated. The patient's chart reviewed. This is psychiatric followup note covering for Dr. Calderon. IDENTIFYING DATA: A 52-year-old female who was initially brought in here for increase in agitation, yelling and screaming consistently and psychotic behavior. As early as yesterday the patient observed to be presenting very psychotic, irritable and agitated and recently Thorazine has been increased to 100 mg. Today on iuoy-ec-ocel evaluation, the patient randomly screams, yells, upon approach becomes more suspicious and paranoid and refuses interview. MENTAL STATUS EXAMINATION: Psychotic, delusional, randomly responding to internal stimuli and yelling and screaming. ASSESSMENT AND PLAN: The patient is a 52-year-old female who continues to present psychotic and disorganized. We will continue with the current medication regimen, which was recently increased, which includes Thorazine 50 mg p.o. b.i.d., Thorazine 100 mg at nighttime, clonazepam 1 mg p.o. t.i.d., ferrous sulfate, insulin, lorazepam as needed, metformin and Zoloft 100 mg with trazodone for sleeping. We will continue with primary psychiatrist's treatment due to the patient's active psychotic symptoms. She is unable to formulate a safe plan outside the structured environment. JOB# [id number]
[2018-06-05] MEDS: INSULIN ASPART SLIDING SCALE 100 UNITS/ML UNIT SUBQ SCH ×4 (06:43→20:24)
[2018-06-05] MEDS: Ferrous Sulfate 325 MG TAB PO SCH ×3 (08:10→21:12)
[2018-06-05] MEDS: Multivitamin Tab PO SCH (08:10)
[2018-06-05] MEDS: Benztropine 1 MG TAB PO SCH ×2 (08:13→16:42)
--- NOTE | 2018-06-05 19:44 | Progress Notes ---
DATE: 06/05/2018 SUBJECTIVE: The patient was seen and evaluated. The patient's chart reviewed. Covering for Dr. Calderon. Today on [id number]-ul-[id number] evaluation, the patient presents very disorganized. Upon approach, the patient's randomly yells, incomprehensible words and on her own just easily active and responding. MENTAL STATUS EXAMINATION: Responding, hearing voices, derailed. ASSESSMENT AND PLAN: The 52-year-old female who continues to present with psychotic disorder. We will continue increasing the Thorazine to 50 mg p.o. t.i.d. to target the patient's psychotic symptoms and continue with the Thorazine at 100 mg at nighttime or augmenting with primary psychiatric treatment, which include clonazepam and Depakote to target the patient's severe psychotic symptoms along with the Zoloft. JOB# [id number]
[2018-06-06] MEDS: INSULIN ASPART SLIDING SCALE 100 UNITS/ML UNIT SUBQ SCH ×2 (06:50→11:32)
[2018-06-06] MEDS: Ferrous Sulfate 325 MG TAB PO SCH ×2 (08:35→13:28)
[2018-06-06] MEDS: Benztropine 1 MG TAB PO SCH (08:36)
[2018-06-06] MEDS: Multivitamin Tab PO SCH (08:36)
--- NOTE | 2018-06-07 00:02 | Progress Notes ---
DATE: 06/06/2018 Case was discussed with staff of the patient, reviewed records. The staff believes that this is probably her basic level of functioning. She continues to have episodes of yelling and screaming. They believe that she is a little bit more mellow. She is much more redirectable. She is developmentally disabled and we do not expect much more change for her. At this point since we think that she is at the level of functioning, she will be going to SNF facility where they will be able to take care of her, so the patient will be discharged to a lesser level of care. The patient can express herself. In general, unable to take care of herself, need to be taking care of and the patient will follow up with the psychiatrist, primary care physician at the facility where she will be going too. JOB# [id number]
--- NOTE | 2018-06-19 17:19 | Discharge Summary ---
DATE OF DISCHARGE: 06/06/2018 AGE: 52. SEX: Female. PHYSICIAN: Dr. Calderon. FINAL DIAGNOSIS: PRIMARY DIAGNOSIS: Unspecified psychosis. SECONDARY DIAGNOSIS: Developmental delay. MEDICAL DIAGNOSES: 1. Bronchial asthma. 2. Degenerative joint disease. REASON FOR HOSPITALIZATION: The patient was admitted to the hospital because of increasing agitation and because of inability to follow any directions and the patient was agitated and in irritable mood in the jail where she was living. Also, she was yelling and screaming constantly. She continued to be extremely agitated and in irritable mood. The patient also was restless. She also was acting minimally with others. The patient also continues yelling and screaming constantly and she was not able to follow any of staff directions. The patient was given Seroquel, which helped the patient to be less irritable and less agitated. She also was easier to redirect her. Physical examination of the patient was as mentioned under final diagnoses. The patient had no major medical problems while in the hospital. AFTER DISCHARGE PLANS: The patient discharged from the hospital back to care home with plans for outpatient treatment and followup to continue as an outpatient. EXPECTED OUTCOME AFTER DISCHARGE: Fair if the patient continued to take her medications and follow up with discharge plans. JOB# [id number]
== END 2018-06-06 16:05 | DRG 885 ==
LOC: ER 21:31 → GERO 05-19 00:15
PROVIDERS: ADMIT Psychiatry & Neurology Psychiatry; ATTEND Psychiatry & Neurology Psychiatry
DX: F23 Brief psychotic disorder (principal); R62.50 Unspecified lack of expected normal physiological development in childhood; E11.9 Type 2 diabetes mellitus without complications; J45.909 Unspecified asthma, uncomplicated; F03.90 Unspecified dementia, unspecified severity, without behavioral disturbance, psychotic disturbance, mood disturbance, and anxiety; M19.90 Unspecified osteoarthritis, unspecified site; R13.10 Dysphagia, unspecified; Z91.81 History of falling
CPT/HCPCS: 36415-UA; 80048-TC; 80164-TC; 82948-90; 84443-TC; 85025-TC; 94760; J1200; J1630; J1815; J2060; J3230; J7051; Q0161; Z7610